=== PATIENT | male | born 1960 | race African-American/Black ===

== ENCOUNTER 2017-03-07 06:56 | Day surgery (SDC) | END 2017-03-07 14:25 | disposition home or self-care (01) ==

== ENCOUNTER 2017-03-12 11:23 | Inpatient (IN) | END 2017-03-16 13:03 | disposition home or self-care (01) | DRG 863 ==

== ENCOUNTER 2017-07-26 06:15 | Day surgery (SDC) | END 2017-07-26 11:29 | disposition home or self-care (01) ==

== ENCOUNTER 2017-08-22 06:08 | Inpatient (IN) | END 2017-08-31 16:00 | disposition home or self-care (01) | DRG 331 ==

== ENCOUNTER → 2018-02-10 | Outpatient (CLI) | END | disposition home or self-care (01) ==

== ENCOUNTER 2018-05-09 10:19 | Day surgery (SDC) | payer OTHER ==
[2018-05-09] VITALS (8 sets, daily range): BP systolic 116–139; BP diastolic 62–86; PULSE 70–94; RESP 16–91; Ht 175.3 cm; Wt 72.2 kg
[~2018-05-09] VITALS: Ht 175.3 cm; Wt 72.2 kg
[~2018-05-09 10:19] MED LIST: HYDR-3980 PO; LIDOCAINE 2% (SDV) 5 ML INJ ONE
[2018-05-09] MEDS ORDERED: OXYC10TA45 PO (11:27)
--- NOTE | 2018-05-09 12:45 | PREAC ---
Date/Time of Note Date/Time of Note DATE: 05/09/18 TIME: 12:44 Anesthesia Eval and Record Evaluation Time Pre-Procedure Interview DATE: 05/09/18 TIME: 12:44 Age 57 Sex male NPO: 8 hrs Preoperative diagnosis rectal mass Planned procedure hemorrhoidecomy Past Medical History Past Medical History: Includes Pulm: Asthma Surgery & Anesthesia Issues No known issue Meds Anticoagulation: No Beta Saba within 24 hr: No Reason Beta Saba not given: Pt. not on B-Saba Reported Medications Oxycodone Hcl* (Oxycontin*) 10 Mg Tab.sr.12h, 10 MG PO Q6 PRN for PAIN, TAB 05/09/18 Hydrocodone/Acetaminophen ([place] 10-325 Tablet) 1 Each Tablet, 1 EACH PO QID PRN for PAIN LEVEL 6-10, TAB 08/22/17 Meds reviewed: Yes Allergies Coded Allergies: Tetracyclines (Verified Allergy, Unknown, BURNING WHEN URINATING, 05/09/18) Allergies Reviewed: Yes Labs/Studies Labs Reviewed: Reviewed by anesthesiologist test: Negative Studies: ECG Pre-procedure Exam Last vitals Vital Signs Date Temp Pulse Resp B/P (MAP) Pulse Ox O2 O2 Flow FiO2 Time Delivery Rate 05/09/18 97.6 70 16 126/71 99 Room Air 12:30 (89) Airway: Adequate mouth opening, Adequate thyromental dist Mallampati: Mallampati II Teeth: Normal Lung: Normal Heart: Normal ASA Physical Status ASA physical status: 2 Emergency: None Planned Anesthetic General/MAC: ETT Pre-operative Attestations Prior to commencing anesthesia and surgery, the patient was re-evaluated, there was verification of: *The patient's identity *The results of appropriate recent lab work and preoperative vital signs *The above evaluation not changing prior to induction *Anesthetic plan, risk benefits, alternative and complications discussed with patient/family; questions answered; patient/family understands, accepts and wishes to proceed. COLIN JOSE May 09, 2018 12:45
[2018-05-09] MEDS ORDERED: DIATR MEGLU/DIATRIZOATE SODIUM 120 ML BTL ONE (12:47)
[2018-05-09] MEDS ORDERED: FENTAnyl 50 MCG/ML VIAL ONE (12:52)
[2018-05-09] MEDS ORDERED: ALBUTEROL 0.083% (NEB) 2.5 MG/3 ML AMP HHN PRN (13:00)
[2018-05-09] MEDS ORDERED: METOCLOPRAMIDE 10 MG INJ IV PRN (13:00)
[2018-05-09] MEDS ORDERED: ONDANSETRON 4 MG INJ IV PRN (13:00)
[2018-05-09] MEDS ORDERED: DIPHENHYDRAMINE 50 MG INJ IV PRN (13:00)
[2018-05-09] MEDS ORDERED: MEPERIDINE 25 MG INJ IV PRN (13:00)
[2018-05-09] MEDS ORDERED: FENTAnyl 50 MCG/ML VIAL IV PRN (13:00)
[2018-05-09] MEDS ORDERED: HYDROmorphONE 1 MG/5 ML IV SYRINGE IV PRN ×2 (13:00)
[2018-05-09] MEDS ORDERED: ROCURONIUM 50 MG INJ ONE (13:17)
[2018-05-09] MEDS ORDERED: CEFAZOLIN 1 GM INJ ONE (13:17)
[2018-05-09] MEDS ORDERED: PROPOFOL 20 ML ONE (13:17)
[2018-05-09] MEDS ORDERED: SUCCINYLCHOLINE CHLORIDE 100 MG/5 ML SYG IV ONE (13:17)
[2018-05-09] MEDS ORDERED: BUPIVACAINE 0.5%/EPI (SDV) 30 ML INJ ONE (13:23)
[2018-05-09] MEDS ORDERED: SUGAMMADEX SODIUM 200 MG/2 ML VIAL IV ONE (13:29)
[2018-05-09] MEDS: FENTAnyl 50 MCG/ML VIAL IV PRN ×2 (13:53→14:06)
--- NOTE | 2018-05-09 14:05 | SIPON ---
Date/Time of Note Date/Time of Note DATE: 05/09/18 TIME: 14:03 Operative Report Preoperative Diagnosis History of rectal melanoma need for anal exam under anesthesia and possible dilation of anal stricture and hemorrhoidectomy Postoperative Diagnosis Same Operation/Procedure Performed Anal exam under anesthesia and hemorrhoidectomy x3 Surgeon see signature line dental office assistant Dr Aguilar Anesthesia: general Estimated blood loss: 0 - 10 ml's Transfusion Required none Specimen Hemorrhoid specimens x3 Grafts/Implants none Complications none PHIL JENSEN MD May 09, 2018 14:05
[2018-05-09] MEDS: HYDROmorphONE 1 MG/5 ML IV SYRINGE IV PRN ×2 (14:23→14:28)
--- NOTE | 2018-05-09 14:34 | OPR ---
DATE OF OPERATION: 05/09/2018 PREOPERATIVE DIAGNOSIS: Need for anal exam under anesthesia and hemorrhoidectomy. POSTOPERATIVE DIAGNOSIS: Need for anal exam under anesthesia and hemorrhoidectomy. OPERATION PERFORMED: Anal exam under anesthesia and hemorrhoidectomy. ANESTHESIA: General. ANESTHESIOLOGIST: Jarod Porras MD. SURGEON: Deshaun Juarez MD INSURANCE ADVISER: Marlon Aguilar MD INDICATIONS FOR PROCEDURE: Patient is a 57-year-old male who I previously treated for rectal melanom a. He had a very low anterior resection with handsewn anastomosis. At that time, he also had a dive rting ileostomy placed in an effort to assess whether or not the anastomosis was intact such that the ileostomy could be reversed. Attempts At Gastrografin enema were made; however, the radiologist was unable to cannulate the anus due to probable stricture. There were also large hemorrhoids which wer e adding to the difficulty of cannulation. Based on this, we counseled the patient as to the benefit of anal exam under anesthesia, possible dilation of stricture and possible hemorrhoidectomy. He con sented and was scheduled for surgery. DESCRIPTION OF PROCEDURE: The patient was brought to the operating theater, placed under general ane sthesia. He was then placed in the prone jackknife position. The buttocks were widely shaved, taped , prepped and draped in usual sterile fashion. On visual inspection, there were enlarged hemorrhoids , both in the anterior and posterior region on the right side, as well as left lateral hemorrhoid. T he actual anal canal revealed a very tight stricture. It was not possible to insert even the small f leeann into the anal canal. Attempts at passing a Chapin catheter were also difficult. Based on this, Dr. Juarez made the decision to perform the hemorrhoidectomy and discuss with the patient the possibl e benefit of attempted dilatation of the anus. Therefore, hemorrhoidectomy of all 3 large hemorrhoid s were performed using the LigaSure device and the area was then infiltrated with 0.5% Marcaine local anesthetic with epinephrine. This concluded the procedure. The patient tolerated procedure well. ESTIMATED BLOOD LOSS: 5 mL. COMPLICATIONS: There were no complications. DISPOSITION: The patient was transported in stable condition to the recovery room. Dictated By: DESHAUN JUAREZ MD TL/LAZARO Conf#: [id number] DID#: [id number] CC: MARLON AGUILAR MD;*[facility]*
--- NOTE | 2018-05-13 10:15 | PAC ---
Date/Time of Note Date/Time of Note DATE: 05/13/18 TIME: 10:15 Post-Anesthesia Notes Post-Anesthesia Note Last documented vital signs Vital Signs Date Temp Pulse Resp B/P (MAP) Pulse Ox O2 O2 Flow FiO2 Time Delivery Rate 05/09/18 98.2 84 18 116/64 100 Room Air 16:06 (81) 05/09/18 8.0 14:00 Activity: WNL Respiratory function: WNL Cardiovascular function: WNL Mental status: Baseline Pain reasonably controlled: Yes Hydration appropriate: Yes Nausea/Vomiting absent: Yes COLIN JOSE May 13, 2018 10:15
== END 2018-05-09 16:30 | disposition home or self-care (01) ==
LOC: SDS 10:19
PROVIDERS: ATTEND Surgery Surgical Oncology
DX: K64.4 Residual hemorrhoidal skin tags (principal); K64.8 Other hemorrhoids; J45.909 Unspecified asthma, uncomplicated
CPT/HCPCS: 46260; 71045; 80053; 85025; 85610; 85730; 88304; J0690; J1170; J2175; J2405; J3010; Z7512; Z7610